=== PATIENT | female | born 1985 | race Caucasian/White ===

== ENCOUNTER 2020-03-04 09:43 | Emergency (ER) | payer OTHER ==
[~2020-03-04] VITALS: Ht 162.5 cm; Wt 68.0 kg
[2020-03-04] MEDS ORDERED: VIBRAMYCIN100 MG PO (11:57)
== END 2020-03-04 12:27 | disposition home or self-care (01) ==
LOC: ED 09:43
DX: J18.9 Pneumonia, unspecified organism (principal); F17.200 Nicotine dependence, unspecified, uncomplicated

== ENCOUNTER 2020-09-19 15:32 | Emergency (ER) | payer OTHER ==
[~2020-09-19] VITALS: Ht 165.1 cm; Wt 68.0 kg
[~2020-09-19 15:32] MED LIST: VIBRAMYCIN100 MG PO
[2020-09-19 16:11] LABS: BASO # 0.1 10*3/uL (0.0-0.1); BASO % 0.3 % (0.0-1.0); EOS # 0.1 10*3/uL (0.0-0.4); EOS % 0.9 % (1.0-4.0); HEMATOCRIT 44.9 % (37.0-47.0); LYMPH # 4.1 10*3/uL (1.3-4.4); MEAN CELL VOLUME 92.2 fl (81.0-99.0); MEAN CORPUSCULAR HGB 30.6 pg (27.0-31.0); MEAN CORPUSCULAR HGB CONC 33.2 g/dl (33.0-37.0); MEAN PLATELET VOLUME 9.7 fl (9.6-12.3); MONO # 1.4 10*3/uL (0.1-1.0); MONO % 9.9 % (3.0-9.0); NEUT # 8.7 10*3/uL (2.3-7.9); NEUT % 60.3 % (47.0-73.0); PLATELET COUNT AUTOMATED 314 10*3/uL (130-400); RED BLOOD COUNT 4.87 10*6/uL (4.10-5.10); RED CELL DISTRI WIDTH 13.2 % (0-14.5); WHITE BLOOD COUNT 14.5 10*3/uL (4.8-10.8)
[2020-09-19 16:26] LABS: ALBUMIN 4.1 gm/dl (3.1-4.5); ALKALINE PHOSPHATASE 74 U/L (45-117); BUN 14 mg/dl (7-24); CHLORIDE 105 mmol/L (98-107); CREATININE 0.74 mg/dL (0.55-1.02); POTASSIUM 3.3 mmol/L (3.5-5.1); SGOT/AST 11 IU/L (3-35); SGPT/ALT 30 U/L (12-78); SODIUM 138 mmol/L (136-145)
[2020-09-19 16:28] LABS: BETA-HCG, QUANT < 1.0 mIU/mL (1-3)
[2020-09-19] MEDS ORDERED: DOXYCYCLINE100 M3 PO (18:29)
== END 2020-09-19 18:57 | disposition home or self-care (01) ==
LOC: ED 15:32
PROVIDERS: Student in an Organized Health Care Education/Training Program
DX: Q89.2 Congenital malformations of other endocrine glands (principal); Z88.0 Allergy status to penicillin

== ENCOUNTER 2021-09-25 10:57 | Emergency (ER) | payer OTHER ==
[~2021-09-25 10:57] MED LIST changes: +DOXYCYCLINE100 M3 PO
== END 2021-09-25 12:33 | disposition home or self-care (01) ==
LOC: ED 10:57
DX: U07.1 COVID-19 (principal); Z88.0 Allergy status to penicillin